=== PATIENT | female | born 1970 | race Two or more races ===

== ENCOUNTER 2018-05-16 09:48 | Outpatient (AMBR) | payer MEDICARE, MEDICAID, SELFPAY ==
--- NOTE | 2018-05-16 11:01 | PT.ODAYNRPT ---
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 Objective: see flow sheet. Assessment: increased ankle weights for BLE in which she noticed the difference but did not stop her from continuing the exercises. pt is a little weaker on the LLE and she tends to get nervous but I'm guarding her for safety or the chair will be behind her as well. pt had more difficulty with the LAQs due to quad weakness. pt has trouble with DF on the L foot for heel raises which causes decreased ROM. Plan: continue POC per PT. Length of Time (minutes) of Treatment: 30 Minutes Office Procedures PT Procedures PT Date of Service: 05/16/18 Therapeutic Exercise 15 minutes: Yes
--- NOTE | 2018-05-16 12:09 | PTNOTE_ITS ---
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 Objective: see flow sheet. Assessment: increased ankle weights for BLE in which she noticed the difference but did not stop her from continuing the exercises. pt is a little weaker on the LLE and she tends to get nervous but I'm guarding her for safety or the chair will be behind her as well. pt had more difficulty with the LAQs due to quad weakness. pt has trouble with DF on the L foot for heel raises which causes decreased ROM. Plan: continue POC per PT. Length of Time (minutes) of Treatment: 30 Minutes Office Procedures PT Procedures PT Date of Service: 05/16/18 Therapeutic Exercise 15 minutes: Yes
== END 2018-06-12 23:59 | disposition home or self-care (01) ==
PROVIDERS: PCP Family Medicine; Referring Provider Family Medicine
DX: R26.89 Other abnormalities of gait and mobility (principal); M62.81 Muscle weakness (generalized); I10 Essential (primary) hypertension
CPT/HCPCS: 97110

== ENCOUNTER → 2024-03-20 | Outpatient (CLI) | payer MEDICARE, MEDICAID, SELFPAY ==
--- NOTE | 2024-03-20 13:30 | XR_ITS ---
Examination: MRI right ankle, without contrast Date and time of exam: March 20, 2024 1442 hours INDICATIONS: Right ankle stiffness swelling and pain 2 years Technique: Multiple axial sagittal and coronal images of the right ankle have been obtained with the Siemens high-resolution 1.5 Stacey MRI scanner. Images obtained include T2-weighted fat-suppressed sagittal sections, TR 3500, TE 46, T2 weighted coronal fat suppressed images, TR 3050, TE 84, T2-weighted transverse fat suppressed images, TR 3260, TE 63, proton density transverse images, TR 4720 TE 46, and T1 weighted coronal images, TR 560, TE 13. Findings: Mild biconvex thickening of the Achilles tendon Moderate thickening of the plantar fascia No occult fracture Focal cystic change in the anterior calcaneus Negative for sinus Tarsi syndrome Dome of the talus intact Anterior posterior inferior tibiofibular ligaments intact Talar fibular ligaments intact Significant tendinitis peroneus longus and brevis Extensor tendons intact IMPRESSION: No occult fracture bone contusion or marrow edema Negative for sinus Tarsi syndrome Significant tendinitis peroneus longus and brevis
== END | disposition home or self-care (01) ==
LOC: SMRI 13:35
PROVIDERS: PCP Family Medicine; Referring Provider Podiatrist; Visit Provider Podiatrist
DX: M76.71 Peroneal tendinitis, right leg (principal)
CPT/HCPCS: 73721

== ENCOUNTER → 2024-10-22 | Outpatient (CLI) | payer MEDICARE, MEDICAID, SELFPAY ==
--- NOTE | 2024-10-22 12:30 | XR_ITS ---
Examination: MRI lumbar spine without contrast Date and time of exam: October 22, 2024 1324 hours INDICATIONS: Lower back pain radiating down both legs beginning 2 years ago Technique: Multiple MRI axial and sagittal sections lumbar spine. Sagittal T2-weighted images, TR 3500, TE 118 T1 weighted transverse sections, TR 688 T8.5, T2-weighted sagittal sections T1 weighted sagittal sections TR 621, TE 30 T2 axial sections, TR 4, 190, TE 84. Findings: Adequate alignment lumbar vertebral bodies No lumbar fracture Disc desiccation L3-L4, L4-L5 No spondylolisthesis Axial images demonstrate no focal lumbar disc protrusions IMPRESSION: No lumbar fractures No focal lumbar disc protrusions
== END | disposition home or self-care (01) ==
LOC: SMRI 12:05
PROVIDERS: PCP Family Medicine; Referring Provider Family Medicine; Visit Provider Family Medicine
DX: M54.16 Radiculopathy, lumbar region (principal)
CPT/HCPCS: 72148